=== PATIENT | male | born 1945 | race Caucasian/White ===

== ENCOUNTER 2016-07-25 20:55 | Inpatient (IN) | payer OTHER ==
[~2016-07-25] VITALS: Ht 162.6 cm; Wt 68.0 kg
--- NOTE | ~2016-07-25 | 2DMMODE ---
[facility] [address] [facility] [place] [address] 2 D/M-MODE ECHOCARDIOGRAM Name: GIGI NETTLES Room #: 432-P ADM IN M.R.#: [id number] Admission: 07/25/16 Attend Phys: Rupert Curtis Discharge: Date of : 45 Date of Service: 07/27/16 1350 Report #: [id number] THIS REPORT FOR: //name// APPROVED REPORT Study performed: 07/27/2016 11:25:02 EXAM: Comprehensive 2D, Doppler, and color-flow Echocardiogram Patient Location: Bedside Room #: 432 Status: routine Other Information Study Quality: Good Indications CVA/TIA Hypertension/HDD Echo Enhancing Agent Indication: Rule out Shunt Agent(s) / Amount(s) Used: Agitated Saline 7 cc 2D Dimensions RVDd: 26.80 mm LVEF(%): 66.24 (>50%) IVSd: 9.70 (7-11mm) LVOT Diam: 22.18 (18-24mm) LVDd: 43.89 mm PWd: 10.27 (7-11mm) Ascending Ao: 36.50 (22-36mm) LVDs: 27.95 (25-40mm) Aortic Root: 36.78 mm IVC: 16.00 mm Estrada's LVEF: 66.24 % Volumes Left Atrial Volume (Systole) Single Plane 4CH: 29.42 mL Single Plane 2CH: 24.27 mL LA ESV Index: 17.00 mL/m2 Aortic Valve AoV Peak Flaquito.: 1.06 m/s AO Peak Gr.: 4.49 mmHg LVOT Max P.37 mmHg LVOT Max V: 0.92 m/s CONRADO Vmax: 3.35 cm2 Mitral Valve E/A Ratio: 0.8 [facility] [place] [place] [address] 2 D/M-MODE ECHOCARDIOGRAM Name: GIGI NETTLES Room #: 432-P [facility] IN M.R.#: [id number] Admission: 07/25/16 Attend Phys: Rupert Curtis Discharge: Date of : 45 Date of Service: 07/27/16 1350 Report #: [id number] MV Decel. Time: 224.46 ms MV E Max Flaquito.: 0.58 m/s MV A Flaquito.: 0.72 m/s MV PHT: 65.09 ms IVRT: 119.95 ms Pulmonary Valve PV Peak Flaquito.: 0.79 m/s PV Peak Gr.: 2.48 mmHg Pulmonary Vein P Vein S: 0.44 m/s P Vein A: 0.32 m/s P Vein D: 0.32 m/s P Vein A Dur.: 96.9 msec P Vein S/D Ratio: 1.38 Tricuspid Valve RAP Estimate: 5.00 mmHg Left Ventricle The left ventricle is normal size. There is normal LV segmental wall motion. There is normal left ventricular wall thickness. The left ventricular systolic function is normal. The left ventricular ejection fraction is within the normal range. LVEF is 60-65%. Grade I - abnormal relaxation pattern. Right Ventricle The right ventricle is normal size. The right ventricular systolic function is normal. Atria The left atrium size is normal. Interatrial septum is intact without evidence of ASD or PFO. The right atrium size is normal. Aortic Valve The aortic valve is normal in structure. No aortic regurgitation is present. There is no aortic valvular stenosis. Mitral Valve The mitral valve is normal in structure. There is no mitral valve regurgitation noted. No evidence of mitral valve stenosis. Tricuspid Valve The tricuspid valve is normal in structure. There is no tricuspid valve stenosis. There is no tricuspid valve regurgitation noted. Pulmonic Valve [address] [address] 2 D/M-MODE ECHOCARDIOGRAM Name: GIGI NETTLES Room #: 432-P [facility] IN [facility]#: [id number] Admission: 07/25/16 Attend Phys: Rupert Curtis Discharge: Date of : 45 Date of Service: 07/27/16 1350 Report #: [id number] The pulmonary valve is normal in structure. There is no pulmonic valvular stenosis. There is no pulmonic valvular regurgitation. Great Vessels The aortic root is normal in size. IVC is normal in size and collapses >50% with inspiration. Pericardium There is no pericardial effusion. <Conclusion> The left ventricle is normal size. LVEF is 60-65%. The aortic valve is normal in structure. The mitral valve is normal in structure. The tricuspid valve is normal in structure. The pulmonary valve is normal in structure. <ELECTRONICALLY SIGNED> By: Nba Reyes MD 07/27/16 1350 1350 1350 Nba Reyes MD /INF
--- NOTE | ~2016-07-25 | EKG ---
[place] [address] [facility] [place] [address] ELECTROCARDIOGRAM REPORT Name: GIGI NETTLES Room #: 432-P ADM IN M.R.#: [id number] Admission: 07/25/16 Attend Phys: Keyshawn Nicole MD Discharge: Date of : 45 Report #: [id number] THIS REPORT FOR: //name// [facility] ED Test Date: 2016-07-25 Test Time: 21:16:10 Pat Name: GIGI NETTLES Department: Room: [facility] Gender: M Family Manager: DIONNA : 1945 Requested By: Jaylen Rubio Order Number: [id number] MD: Henry Red Measurements Intervals [place] Rate: 63 P: 71 ME: 186 QRS: -21 QRSD: 85 T: 46 QT: 397 QTc: 407 Interpretive Statements Sinus rhythm Ventricular bigeminy Borderline left axis deviation Low voltage, extremity leads Abnormal R-wave progression, early transition Baseline wander in lead(s) V3 Compared to ECG 06/01/2008 15:38:00 Ventricular premature complex(es) now present Electronically Signed On 07-26-2016 7:50:12 CDT by Henry Red [email or web address] <ELECTRONICALLY SIGNED> By: Henry Red MD, FAC 07/26/16 0750 15 15 Henry Red MD, FAC /EPI
--- NOTE | ~2016-07-25 | HC ---
[facility] [place] [address] CONSULTATION Name: GIGI NETTLES Room #: 432-P [facility] IN M.R.#: [id number] Admission: 07/25/16 Attend Phys: Patrick Lackey MD Discharge: 07/27/16 Date of : 45 Report #: [id number] THIS REPORT FOR: //name// CC: FAM unknown Patrick Lackey DATE OF SERVICE: 07/27/2016 HISTORY OF PRESENT ILLNESS: The patient is a 70-year-old male who has a past history of liver transplant, hypertension, was admitted through the Emergency Department with complaints of dizziness, double vision. He had difficulty seeing on his right side. He had problems trying to stand. He had a fall with an associated head injury. Upon admission, he was seen by Neurology. He was noted to have diplopia with inability to adduct the right eye and lateral left hand gaze. 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 MRI did show evidence of multiple bilateral thalamic infarcts, left greater than right. He currently has his right eye glass medial lens taped. He was noted to have decreased balance with functional mobility and ADL deficits and we are seeing him in rehabilitation medicine consultation. PAST MEDICAL HISTORY: Includes hepatitis B, hypertension, liver transplant, right total knee replacement. ALLERGIES: No known drug allergies. MEDICATIONS: Please see the full medication listing. SOCIAL HISTORY: Lives with his son in a [facility]townhouse. There are two steps in. The patient could stay on one floor. The son works during the day. There are no other family members in the area. The patient is retired. Review of systems did not offer any current complaints of chest pain, shortness of breath or abdominal discomfort. HABITS: Admitted to the use of tobacco. Noted to be a current every day smoker. No history of alcohol use. REVIEW OF SYSTEMS: No current complaints of chest pain, shortness of breath or abdominal discomfort. No focal extremity pain complaints. No headache. No complaints of bowel or bladder changes were verbalized. The main issue is his decreased vision, double vision to the right eaton and decreased gait stability. PHYSICAL EXAMINATION: GENERAL: A pleasant 70-year-old small statured male in no obvious distress. VITAL SIGNS: Last recorded temperature 97.9, pulse 58, respirations 18, blood [address] [address] CONSULTATION Name: GIGI NETTLES Room #: 432-P [facility] IN .R.#: [id number] Admission: 07/25/16 Attend Phys: Patrick Lackey MD Discharge: 07/27/16 Date of : 45 Report #: [id number] pressure 149/85. The patient is alert. He is pleasant. HEENT: Appeared to be benign. NEUROLOGIC: He can look to the right and appears to have reasonably conjugate gaze, but upon looking to the left, his right eye does not adduct. He has definite double vision in that field. Facies appeared to be symmetric. He has functional range of motion of both upper and lower extremities. Strength appears to be at least a grade 4/5. DTRs are trace to 1. Sensory examination appeared reasonably intact to simultaneous stimulation. He is contact guard with sit to stand and short distance walker ambulation. Tends to weave, went up, can walk towards obstacles. He needs min assist with standing balance for basic ADLs. ASSESSMENT: A 70-year-old white male with the following problem list: 1. Multiple CVAs, bilateral thalamic, left greater than right. 2. Diplopia. He has inability to adduct his right eye. 3. Functional mobility and ADL deficits with decreased balance and ADLs. 4. History of tobacco abuse. 5. Previous liver transplant. 6. Hypertension. 7. Hepatitis C. 8. Prior right total knee replacement. PLAN: Neurology indicates that he will need an ophthalmology consult at some point for prisms in glasses to help correct the deficit. In my opinion, this would need to be a neuroophthalmologist. The patient is a candidate and would benefit from an acute in-hospital inpatient rehabilitation stay. From a preadmission screening perspective: 1. Prior level of function is well delineated above. 2. Expect level of improvement would be for the patient to improve with gait mobility, transfers, and ADLs to hopefully return back to the home setting. We would anticipate length of stay of at least 5-7 days and potentially longer as warranted. 3. Evaluation of the patient's risk for clinical complications. He does have multiple medical comorbidities as noted above. 4. Condition that caused the need for rehabilitation would be the multiple strokes. 5. Treatments needed would include PT, OT and speech 1 hour per day each five days a week throughout the duration of the acute inpatient rehabilitation stay. 6. Anticipated discharge destination would be back to the home setting. 7. Anticipated post-discharge treatments would include either home healthcare or outpatient. 8. The patient would meet diagnostic criteria for an acute in-hospital inpatient rehabilitation stay. He meets diagnostic criteria, he meets medical [facility] [address] [place] [address] CONSULTATION Name: GIGI NETTLES Room #: 432-P [facility] IN M.R.#: [id number] Admission: 07/25/16 Attend Phys: Patrick Lackey MD Discharge: 07/27/16 Date of : 45 Report #: [id number] tolerance criteria. He meets medical necessity criteria and he has appropriate discharge goals back to the home setting. <ELECTRONICALLY SIGNED> By: Alejandro Romeo MD 07/28/16 1556 1231 0001 Alejandro Romeo MD /nt
[2016-07-25 00:26] VITALS: BP 133/81
[~2016-07-25 20:55] MED LIST: ZOFRAN ODT4 MG PO
[2016-07-25 20:56] VITALS: BP 184/93
[2016-07-25 21:21] LABS: HEMATOCRIT 39.4 % (42.0-52.0); HEMOGLOBIN 13.6 gm/dL (14.0-18.0); MCH 30.2 pg (26.0-34.0); MCHC 34.6 g/dL (28.0-37.0); MCV 87.3 fL (80.0-100.0); RBC 4.51 mil/uL (4.50-6.00); RDW 13.4 % (10.5-14.5)
[2016-07-25] MEDS ORDERED: [UNRECOGNIZED DRUG - OTHER] PO (21:23)
[2016-07-25] MEDS ORDERED: AMLODIPINE BESY10 MG PO (21:23)
[2016-07-25] MEDS ORDERED: LISINOPRIL10 MG PO (21:23)
[2016-07-25] MEDS ORDERED: VIREAD300 MG PO (21:23)
[2016-07-25] MEDS ORDERED: TACROLIMUS PO (21:23)
[2016-07-25] MEDS ORDERED: LOPRESSOR50 PO (21:23)
[2016-07-25 21:27] LABS: ANION GAP 10 mmol/L (7-16); BUN 16 mg/dL (7-18); CALCIUM 9.4 mg/dL (8.5-10.1); CHLORIDE 102 mmol/L (98-107); CO2 26 mmol/L (21-32); CREATININE 1.5 mg/dL (0.7-1.3); GLUCOSE 343 mg/dL (74-106); POTASSIUM 3.9 mmol/L (3.5-5.1); SODIUM 138 mmol/L (136-145)
[2016-07-25 21:34] LABS: APTT 25.7 Seconds (24.5-32.8); PROTIME 10.3 Seconds (9.3-11.4)
[2016-07-25 21:35] LABS: TROPONIN-I < 0.04 ng/mL (<0.04-0.07)
[2016-07-26 06:00] LABS: HEMATOCRIT 37.5 % (42.0-52.0); MCH 30.6 pg (26.0-34.0); MCHC 34.5 g/dL (28.0-37.0); MCV 88.7 fL (80.0-100.0); RBC 4.24 mil/uL (4.50-6.00); RDW 13.5 % (10.5-14.5); WBC 7.3 thou/uL (4.0-11.0)
[2016-07-26 06:11] VITALS: BP 140/80
[2016-07-26 06:22] LABS: CALCIUM 9.2 mg/dL (8.5-10.1); CREATININE 1.3 mg/dL (0.7-1.3)
[2016-07-26 06:29] LABS: CHOLESTEROL 103 mg/dL (<200); HDL CHOLESTEROL 26 mg/dL (>40); LDL CHOLESTEROL 30 mg/dL (<100); TRIGLYCERIDE 235 mg/dL (<150); VLDL 47 mg/dL (<40)
[2016-07-26 14:49] VITALS: BP 120/76
[2016-07-26 21:00] VITALS: BP 137/73
[2016-07-27 03:09] LABS: GLYCOHEMOGLOBIN (HGB A1C) 9.6 % (4.8-5.6)
[2016-07-27 05:00] VITALS: BP 137/70
[2016-07-27 07:22] VITALS: BP 149/85
[2016-07-27] MEDS ORDERED: LANTUS100 UNIT/M SUBQ (14:40)
[2016-07-27] MEDS ORDERED: FISH OIL 1,0001 EAC5 PO (14:40)
[2016-07-27] MEDS ORDERED: CVS BUFFERED A325 MG PO (14:40)
== END 2016-07-27 15:43 | DRG 65 ==
LOC: ER 20:55 → 4E 23:20 → EROBS 23:20 → 4E 23:48
PROVIDERS: Emergency Medicine; Nurse Practitioner Family
DX: I63.9 Cerebral infarction, unspecified (principal); Z94.4 Liver transplant status; Z94.0 Kidney transplant status; I10 Essential (primary) hypertension; Z96.651 Presence of right artificial knee joint; H51.20 Internuclear ophthalmoplegia, unspecified eye; H53.2 Diplopia; B19.20 Unspecified viral hepatitis C without hepatic coma; F17.210 Nicotine dependence, cigarettes, uncomplicated; F10.10 Alcohol abuse, uncomplicated; R73.03 Prediabetes; Z79.82 Long term (current) use of aspirin; Z79.899 Other long term (current) drug therapy; Z98.49 Cataract extraction status, unspecified eye; Z90.49 Acquired absence of other specified parts of digestive tract; Z86.19 Personal history of other infectious and parasitic diseases
CPT/HCPCS: 10183

== ENCOUNTER 2016-07-27 14:41 | Inpatient (IN) | payer OTHER ==
[~2016-07-27] VITALS: Ht 165.1 cm; Wt 74.1 kg
--- NOTE | ~2016-07-27 | PLAN ---
[facility] [place] [address] REHAB UNIT PLAN OF CARE Name: GIGI NETTLES Room #: 511-P ADM IN M.R.#: [id number] Admission: 07/27/16 Attend Phys: Alejandro Romeo MD Discharge: Date of : 45 Report #: [id number] THIS REPORT FOR: //name// CC: Alejandro Romeo [facility] unknown DATE OF SERVICE: 07/29/2016 The patient was seen back in followup. He is in no distress. Temperature 36.9, pulse 69, respirations 18, blood pressure 138/86. He was seen earlier this morning and was in no distress. He has been working in his therapies with transfers, contact guard assistance. Gait has been mod assist 500 feet without a device. In occupational therapy, lower body dressing is supervision, upper body dressing is min assist. Speech reveals mild to moderate comprehensive deficits. He is on a regular diet with thin liquids. ASSESSMENT: 1. Bilateral thalamic infarcts, left greater than right. 2. Diplopia. 3. Decreased balance and coordination. 4. Hypertension. 5. Tobacco abuse. 6. Prior liver transplant surgery. 7. Prior right total knee replacement. 8. History of hepatitis B. 9. Acute renal insufficiency that has been improving. PLAN: The overall plan of care is based on the preadmission screen, post-admission physician evaluation and information garnered from therapy assessments. 1. Estimated length of stay is hopefully fairly short around 10 days to 2 weeks pending progress. 2. Medical prognosis is reasonably good. 3. Anticipated interventions include the interdisciplinary acute inpatient rehabilitation program with PT and OT and speech, rehabilitation nursing assisting regarding medication management, skin care prophylaxis, bowel and bladder issues and nursing education. The internal control consultant physicians are involved. 4. Anticipated functional outcomes would be for the patient to become modified independent with transfers, mobility and ADLs and for improvement in his vision and ability to be able to live by himself. 5. Discharge destination is back to the home setting. Goes back home with his son. 6. Expected therapy by discipline includes PT and OT and speech 1 hour per day [address] [address] REHAB UNIT PLAN OF CARE Name: GIGI NETTLES Room #: 511-P [facility] IN ..#: [id number] Admission: 07/27/16 Attend Phys: Alejandro Romeo MD Discharge: Date of : 45 Report #: [id number] each five days a week throughout the duration of the acute inpatient rehabilitation stay. By: 1452 21 Alejandro Romeo MD /nt
--- NOTE | ~2016-07-27 | HC ---
[facility] [place] [place] [address] CONSULTATION Name: GIGI NETTLES Room #: 511-P ADM IN M.R.#: [id number] Admission: 07/27/16 Attend Phys: Alejandro Romeo MD Discharge: Date of : 45 Report #: [id number] THIS REPORT FOR: //name// CC: Alejandro Romeo [facility] unknown DATE OF SERVICE: 07/29/2016 NEUROBEHAVIORAL STATUS EXAM ATTENDING PHYSICIAN: Alejandro Romeo M.D. DIRECTOR PRIVATE MUSIC THERAPY AGENCY: Kristofer Schmidt, PhD CLINICAL PRESENTATION: The patient is a 70-year-old male admitted to the [facility] Rehabilitation Unit for comprehensive inpatient rehabilitation program to improve functional mobility, activities of daily living and self-care and mental status secondary to bilateral thalamic infarction, left greater than right. ADDITIONAL DIAGNOSES: Include diplopia, decreased balance and coordination deficits, hypertension, tobacco abuse, prior liver transplant surgery, prior right total knee replacement, history of hepatitis B, acute renal insufficiency, elevated blood glucose and hypertension. A complete description of his medical condition and history can be found in his medical record. Neuropsychological consultation was requested to provide assistance in the assessment of cognitive and emotional status and to provide recommendations and services. Prior to this recent hospitalization, he was living with his stepson. The patient reports being independent with active basic and instrumental activities of daily living. His about 3 years ago. The patient is a college graduate. 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 The patient does have a longstanding history of alcohol abuse. He discontinued drinking prior to liver transplant in 2008. TECHNIQUES UTILIZED: Clinical interview, review of medical records, staff consultation and behavioral observation, mini mental status exam 2 standard version, clock drawing and calibrated ideational fluency assessment (letter and category). EXAMINATION FINDINGS: The patient was alert and cooperative with the assessment. He was somewhat impulsive. There is no evidence of aphasia. His thoughts are logical and goal oriented. There is no evidence of thought disorder. He does not report auditory or visual hallucinations. He reports his symptoms do include word finding, anxiety and difficulty in concentration. He does not report depression, but does acknowledge some increased anxiety. [facility] [address] [place] [address] CONSULTATION Name: GIGI NETTLES Room #: 511-P [facility] IN M.R.#: [id number] Admission: 07/27/16 Attend Phys: Alejandro Romeo MD Discharge: Date of : 45 Report #: [id number] His performance on the MMSE 2 brief version is within normal limits with a raw score of 15 of 16. MMSE 2 standard version was within normal limits with a raw score 28 of 30. Letter fluency was extremely low with a T score of 22 and percentile rank of less than 1. Category fluency was extremely low with a T score at and percentile rank less than 1. Total verbal fluency was a T score at 19, which is a percentile less than 1 extremely low. Abstract reasoning assessment was 4/8 which suggests moderate deficit. 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 Unspecified anxiety disorder. RECOMMENDATIONS: The patient will require 24-hour care at this time. He will need assistance with medical, financial and nutritional management. Greater deficits are noted in executive functioning. Impairment in verbal fluency can often be seen and executive functioning deficits requiring assistance in thought organization, planning and problem solving. The patient is lacking insight into the extent of his deficits. History of alcohol abuse is noted. He has maintained alcohol abstinence prior to his liver transplant, which was in 2008. Thank you very much for allowing me to provide the consultation on this patient. By: [id number] Kristofer Schmidt, PhD /nt
--- NOTE | ~2016-07-27 | H ---
[facility] [place] [address] HISTORY AND PHYSICAL Name: GIGI NETTLES Room #: 511-P [facility] IN M.R.#: [id number] Admission: 07/27/16 Attend Phys: Alejandro Romeo MD Discharge: Date of : 45 Report #: [id number] THIS REPORT FOR: //name// CC: Alejandro Romeo [facility] unknown DATE OF SERVICE: 07/27/2016 HISTORY OF PRESENT ILLNESS: The patient is a 70-year-old male with a prior history of liver transplant and hypertension who was originally admitted to [facility] complaining of dizziness and double vision. He was having definite difficulty seeing out of his right eye. He also was having problems with gait and balance. CT of the head was negative. He was noted to have diplopia and was seen by neurology. He had a question of intranuclear ophthalmoplegia and has difficulty adducting with that right eye. Workup revealed bilateral thalamic infarcts, left greater than right on MRI. He will eventually need a neuro-ophthalmology evaluation for assessment regarding prism glasses. In the meantime, he has had significant functional mobility and ADL and visual perceptual deficits which is a considerable decline from his premorbid functional status. He has now been admitted for acute in-hospital inpatient rehabilitation. PAST MEDICAL HISTORY: Includes hepatitis B, hypertension, liver transplant, right total knee replacement. MEDICATIONS: Please see the full medication listing as noted. Each medication was individually reconciled. The medication list includes over the counters and supplements. HABITS: He is a tobacco smoker up to the day of admission. ALLERGIES: No known drug allergies. SOCIAL HISTORY: Lives in a town house with his son, 2 steps in. Son works multimedia educational specialist. The patient could stay down stairs. He did not utilize gait aids premorbidly. FAMILY HISTORY: Noncontributory. PRIOR SURGICAL HISTORY: Includes a prior right knee replacement as well as liver transplant. REVIEW OF SYSTEMS: He has visual problems as noted. No complaints of chest pain, shortness of breath or abdominal discomfort. No new bowel or bladder changes, no complaints of headache. No focal extremity pain complaints. [facility] [address] [place] [address] HISTORY AND PHYSICAL Name: RAI NETTLESMolly Hester Room #: 511-P [facility] IN ..#: [id number] Admission: 07/27/16 Attend Phys: Alejandro Romeo MD Discharge: Date of : 45 Report #: [id number] PHYSICAL EXAMINATION: GENERAL: He is a 70-year-old male in no obvious distress. He is alert, pleasant. VITAL SIGNS: Last recorded temp 98.6, pulse 59, respirations 18, blood pressure 121/80. HEENT: Appeared to be benign. NEUROLOGIC: Cranial nerves, however, showed significant problems with extraocular movements with inability of that right eye to adduct. He does a better job with abduction of both eyes, although his vision does not appear fully conjugate. His right eye glass lens is currently taped. Facies appeared to be symmetric and he was able to express himself reasonably well. CHEST: Sounded clear to auscultation. CARDIOVASCULAR: Regular rate and rhythm. ABDOMEN: Bowel sounds positive, nontender. GENITOURINARY AND RECTAL: Deferred. EXTREMITIES: He has functional range of motion of both upper extremities with strength of grade 4 to 4+/5. DTRs are trace to 1. Tone appeared to be intact. Lower extremities, no focal calf swelling. Functional range of motion with strength of grade 4/5 to 4-/5. DTRs are trace to 1. He does reasonably well with simultaneous stimulation. He does have decreased gait stability, tends to weave one direction or the other with decreased balance, especially during turns. ASSESSMENT: 1. Bilateral thalamic infarcts, left greater than right. 2. Diplopia. 3. Decreased balance and coordination deficits. 4. Hypertension. 5. Tobacco abuse. 6. Prior liver transplant surgery. 7. Prior right total knee replacement. 8. History of hepatitis B. 9. Acute renal insufficiency that has been improving. 10. Elevated blood glucoses that are being monitored. 11. Hypertension. PLAN: The patient is admitted for acute in-hospital inpatient rehabilitation. From a post admission physician evaluation perspective, there are no relevant changes since the preadmission screening. Please see the above review of prior and current medical and functional conditions and comorbidities. Please see the patient's previous and current functional status. As far as risk of complications, he has the multiple medical comorbidities as noted above. Plan of care involves the interdisciplinary acute inpatient rehabilitation program with the goal of maximizing his functional independence, so that he can hopefully return back to his prior living situation. Prognosis is reasonably good with estimated length of stay, hopefully fairly short. Potential barriers [address] [address] HISTORY AND PHYSICAL Name: GIGI NETTLES Room #: 511-P [facility] IN M.R.#: [id number] Admission: 07/27/16 Attend Phys: Alejandro Romeo MD Discharge: Date of : 45 Report #: [id number] would include his multiple medical comorbidities. He does meet diagnostic criteria for an acute in-hospital inpatient rehabilitation stay. He meets medical necessity criteria. He does have appropriate tolerance for therapies and has appropriate discharge goals back to the home setting. He will need to see neuro-ophthalmology as an outpatient, be considered for prism glasses, etc. <ELECTRONICALLY SIGNED> By: Alejandro Romeo MD 07/28/16 1556 1002 1036 Alejandro Romeo MD /nt
[~2016-07-27 14:41] MED LIST changes: +AMLODIPINE BESY10 MG PO; +CVS BUFFERED A325 MG PO; +FISH OIL 1,0001 EAC5 PO; +LANTUS100 UNIT/M SUBQ; +LISINOPRIL10 MG PO; +LOPRESSOR50 PO; +TACROLIMUS PO; +VIREAD300 MG PO; +[UNRECOGNIZED DRUG - OTHER] PO
[2016-07-27 15:30] VITALS: BP 146/88
[2016-07-27 20:30] VITALS: BP 139/93
[2016-07-28 06:15] VITALS: BP 121/80
[2016-07-28 08:12] VITALS: BP 134/81
[2016-07-28 08:21] LABS: ABSOLUTE NEUTROPHILS 5.1 thou/uL (1.4-8.2); EOSINOPHILS 2.8 % (0.0-3.0); HEMATOCRIT 41.2 % (42.0-52.0); HEMOGLOBIN 13.9 gm/dL (14.0-18.0); LYMPHOCYTES 27.6 % (24.0-44.0); MCHC 33.7 g/dL (28.0-37.0); MCV 89.1 fL (80.0-100.0); MONOCYTES 9.4 % (1.0-8.0); PLATELET COUNT 147 thou/uL (150-400); POLYS 59.2 % (36.0-66.0); RBC 4.63 mil/uL (4.50-6.00); RDW 13.5 % (10.5-14.5); WBC 8.6 thou/uL (4.0-11.0)
[2016-07-28 08:22] LABS: MANUAL DIFF NO
[2016-07-28 08:35] LABS: CALCIUM 9.4 mg/dL (8.5-10.1); CREATININE 1.3 mg/dL (0.7-1.3); POTASSIUM 4.1 mmol/L (3.5-5.1)
[2016-07-28 16:16] VITALS: BP 120/83
[2016-07-28 21:10] VITALS: BP 152/88
[2016-07-29 05:58] VITALS: BP 138/86
[2016-07-29 07:33] VITALS: BP 137/70
[2016-07-29 16:03] VITALS: BP 142/80
[2016-07-30 05:21] VITALS: BP 131/82
[2016-07-30 15:59] VITALS: BP 123/72
[2016-07-31 05:04] VITALS: BP 133/78
[2016-07-31 06:30] LABS: CALCIUM 8.9 mg/dL (8.5-10.1); CREATININE 1.2 mg/dL (0.7-1.3)
[2016-07-31 15:28] VITALS: BP 128/77
[2016-08-01 04:58] VITALS: BP 117/80
[2016-08-01 07:32] VITALS: BP 117/76
[2016-08-01 15:30] VITALS: BP 126/71
[2016-08-01 20:24] VITALS: BP 139/79
[2016-08-02 04:40] LABS: ABSOLUTE NEUTROPHILS 4.1 thou/uL (1.4-8.2); BASOPHILS 3.1 % (0.0-2.0); EOSINOPHILS 3.3 % (0.0-3.0); HEMATOCRIT 36.2 % (42.0-52.0); HEMOGLOBIN 12.4 gm/dL (14.0-18.0); LYMPHOCYTES 27.1 % (24.0-44.0); MANUAL DIFF NO; MCH 30.1 pg (26.0-34.0); MCHC 34.3 g/dL (28.0-37.0); MCV 87.8 fL (80.0-100.0); MONOCYTES 9.8 % (1.0-8.0); PLATELET COUNT 134 thou/uL (150-400); POLYS 56.7 % (36.0-66.0); RBC 4.12 mil/uL (4.50-6.00); RDW 13.4 % (10.5-14.5); WBC 7.3 thou/uL (4.0-11.0)
[2016-08-02 04:49] LABS: CALCIUM 8.8 mg/dL (8.5-10.1); CREATININE 1.3 mg/dL (0.7-1.3); MAGNESIUM 1.9 mg/dL (1.8-2.4); POTASSIUM 3.8 mmol/L (3.5-5.1)
[2016-08-02 05:13] VITALS: BP 114/71
[2016-08-02 08:16] VITALS: BP 123/76
[2016-08-02 16:45] VITALS: BP 121/78
[2016-08-02 22:04] VITALS: BP 121/75
[2016-08-03 05:43] VITALS: BP 140/89
[2016-08-03 16:00] VITALS: BP 116/71
[2016-08-03 22:30] VITALS: BP 128/91
[2016-08-04 05:50] VITALS: BP 127/85
[2016-08-04 09:00] VITALS: BP 140/93
== END 2016-08-04 19:48 | DRG 65 ==
PROVIDERS: Family Medicine; Nurse Practitioner
DX: I63.9 Cerebral infarction, unspecified (principal); Z94.4 Liver transplant status; Z94.0 Kidney transplant status; H53.2 Diplopia; I10 Essential (primary) hypertension; G31.84 Mild cognitive impairment of uncertain or unknown etiology; F41.9 Anxiety disorder, unspecified; F10.10 Alcohol abuse, uncomplicated; N28.9 Disorder of kidney and ureter, unspecified; F17.210 Nicotine dependence, cigarettes, uncomplicated; Z96.651 Presence of right artificial knee joint; E11.65 Type 2 diabetes mellitus with hyperglycemia
CPT/HCPCS: 10112